=== PATIENT | male | born 1985 | race Caucasian/White ===

== ENCOUNTER 2019-01-29 17:04 | Emergency (ER) | payer BC ==
[2019-01-29 17:19] VITALS: BP 119/79
[2019-01-29] MEDS ORDERED: Tetracaine 0.5% OPTH.SOL 4 ML* 1 DROP BTL LEFT EYE ONE (17:22)
[2019-01-29] MEDS ORDERED: Fluorescein Sodium TOPICAL* 1 MG TEST STRIP OPHTHALMIC ONE (17:22)
[2019-01-29] MEDS ORDERED: Tobramycin 0.3% OPHTH.SOL* 5 ML BOT (regular eye drops) LEFT EYE ONE (17:37)
--- NOTE | 2019-01-29 17:40 | UC ---
Eye Complaint HPI - HPI Summary HPI Summary: 33-year-old male comes in with a chief complaint of left eye pain. Started this morning. He was able to see white area on the cornea over the iris. He states that's where it hurts. Does not wear contacts. No known trauma. 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 Pains about a 7 out of 10. - History of Current Complaint Chief Complaint: UCEye Stated Complaint: EYE ISSUE Time Seen by Provider: 01/29/19 17:14 Pain Intensity: 8 - Allergies/Home Medications Allergies/Adverse Reactions: Allergies Allergy/AdvReac Type Severity Reaction Status Date / Time bupropion [From Wellbutrin] Allergy Mild Hives Verified 01/29/19 17:19 PMH/Surg Hx/FS Hx/Imm Hx Previously Healthy: Yes - RECURRENT STYES - Surgical History Surgical History: Yes Surgery Procedure, Year, and Place: lower abd hernia - Family History Known Family History: Positive: Non-Contributory - Social History Alcohol Use: None Substance Use Type: None Smoking Status (MU): Never Smoked Tobacco Review of Systems All Other Systems Reviewed And Are Negative: Yes Constitutional: Positive: Negative Skin: Positive: Other - SEE HPI Eyes: Positive: Drainage, Eye Redness, Other - SEE HPI ENT: Positive: Negative Respiratory: Positive: Negative Cardiovascular: Positive: Negative Gastrointestinal: Positive: Negative Motor: Positive: Negative Neurovascular: Positive: Negative Musculoskeletal: Positive: Negative Neurological: Positive: Negative Psychological: Positive: Negative Is Patient Immunocompromised?: No Physical Exam Triage Information Reviewed: Yes Appearance: Well-Appearing, No Pain Distress, Well-Nourished Vital Signs: Initial Vital Signs Temp 98.6 F 01/29/19 17:13 Pulse 85 01/29/19 17:13 Resp 17 01/29/19 17:13 BP 119/79 01/29/19 17:13 Pulse Ox 98 01/29/19 17:13 Vital Signs Reviewed: Yes Eyes: Positive: Conjunctiva Inflamed, Discharge, Other: - Bilateral upper and lower eyelids have erythema. Is worse on the left than the right. There is scleral injection bilaterally worse on the left than the right. Using tetracaine and fluorescein stain there is a 2 mm area of fluorescein uptake on the cornea at 7:00 over the iris. No hyphema. PERRLA EOMI. Eye Complaint Course/Dx - Course Course Of Treatment: Unsure if there is a corneal abrasion or corneal ulcer in the left eye. Started on tobramycin here in clinic and he is to follow up with ophthalmology tomorrow. - Differential Dx/Diagnosis Provider Diagnosis: Left eye pain Discharge ED - Sign-Out/Discharge Documenting (check all that apply): Patient Departure All imaging exams completed and their final reports reviewed: No Studies - Discharge Plan Condition: Stable Disposition: HOME Patient Education Materials: Corneal Abrasion (ED), Corneal Ulcer (ED) Referrals: Rick Correa MD [Primary Care Provider] - [facility] [Provider Group] Additional Instructions: ON EXAM, IT IS UNCLEAR IF YOU HAVE A CORNEAL ABRASION OR ULCER. TO ENSURE COMPLETE HEALING, FOLLOW UP WITH OPHTHALMOLOGY TOMORROW GET REEVALUATED SOONER IF NOT IMPROVED OR WORSE OR ANY QUESTIONS OR CONCERNS. - Billing Disposition and Condition Condition: STABLE Disposition: Home
== END 2019-01-29 17:46 | disposition home or self-care (01) ==
LOC: UCEAST 17:04
DX: H57.12 Ocular pain, left eye (principal); L53.8 Other specified erythematous conditions; Z88.8 Allergy status to other drugs, medicaments and biological substances
CPT/HCPCS: 99212; A9270-GY; G0463